=== PATIENT | female | born 1995 | race Caucasian/White ===

== ENCOUNTER 2016-09-07 06:36 | Emergency (ER) | payer OTHER ==
[2016-09-07 06:48] VITALS: BP 130/99; BMI 48.8
[2016-09-07 07:23] LABS: BILIRUBIN,URINE NEGATIVE (NEGATIVE); BLOOD/HEMOGLOBIN,URINE 3+ (NEGATIVE); GLUCOSE, URINE NEGATIVE (NEGATIVE); KETONES,URINE NEGATIVE (NEGATIVE); LEUKOCYTE ESTERASE ,URINE 3+ (NEGATIVE); NITRITES,URINE NEGATIVE (NEGATIVE); PROTEIN,URINE 1+ (NEGATIVE); UROBILINOGEN,URINE NORMAL (NORMAL)
[2016-09-07] MEDS ORDERED: NS 1000 ML 1,000 ML ONE (07:24)
[2016-09-07] MEDS ORDERED: NS 1000 ML 1,000 ML IV ONE (07:25)
[2016-09-07 07:27] LABS: AMORPHOUS SEDIMENT,UR 1+ /HPF (NEGATIVE); APPEARANCE,URINE CLEAR (CLEAR); BACTERIA,URINE TRACE /HPF (NEGATIVE); COLOR,URINE YELLOW (YELLOW); MUCUS,URINE FEW /HPF (NEGATIVE); SQUAMOUS EPITHELIAL CELL,UR MANY /HPF (NEGATIVE)
[2016-09-07] MEDS ORDERED: BRETHINE INJ 1 MG VIAL SC ONE (07:40)
[2016-09-07] MEDS ORDERED: BRETHINE INJ 1 MG VIAL ONE (07:41)
== END 2016-09-07 08:30 | disposition home or self-care (01) ==
LOC: ER 06:36
DX: O60.14X1 Preterm labor third trimester with preterm delivery third trimester, fetus 1 (principal); Z3A.00 Weeks of gestation of pregnancy not specified
CPT/HCPCS: 81001; 96365; 96372; 96374; 99284; A4222; J3105

== ENCOUNTER 2016-09-11 01:30 | Emergency (ER) | payer OTHER ==
[2016-09-11 01:44] VITALS: BP 124/80; BMI 48.8
[2016-09-11 01:50] LABS: BILIRUBIN,URINE NEGATIVE (NEGATIVE); BLOOD/HEMOGLOBIN,URINE 4+ (NEGATIVE); GLUCOSE, URINE NEGATIVE (NEGATIVE); KETONES,URINE NEGATIVE (NEGATIVE); LEUKOCYTE ESTERASE ,URINE 3+ (NEGATIVE); NITRITES,URINE NEGATIVE (NEGATIVE); PROTEIN,URINE 2+ (NEGATIVE); UROBILINOGEN,URINE 2+ (NORMAL)
[2016-09-11 01:56] LABS: APPEARANCE,URINE CLOUDY (CLEAR); BACTERIA,URINE 2+ /HPF (NEGATIVE); COLOR,URINE YELLOW (YELLOW); RBC,URINE 0-3 /HPF (NEGATIVE); SQUAMOUS EPITHELIAL CELL,UR FEW /HPF (NEGATIVE)
[2016-09-11] MEDS ORDERED: NS 1000 ML 1,000 ML ONE (01:59)
[2016-09-11] MEDS ORDERED: NS 1000 ML 1,000 ML IV ONE (02:11)
[2016-09-11] MEDS ORDERED: MACROBID CAP 100 MG EXT REL PO ONE ×2 (03:20→03:22)
== END 2016-09-11 03:29 | disposition home or self-care (01) ==
LOC: ER 01:30
DX: O47.03 False labor before 37 completed weeks of gestation, third trimester (principal)
CPT/HCPCS: 81001; 87086; 96365; 99284; A4222

== ENCOUNTER → 2016-09-18 | Outpatient (CLI) | payer OTHER ==
[2016-09-11 01:44] VITALS: BP 124/80
[2016-09-18 10:01] LABS: BLOOD UREA NITROGEN 8 mg/dL (7-18); CALCIUM 8.4 mg/dL (8.5-10.1); CARBON DIOXIDE 22.1 mmol/L (21-32); CHLORIDE 107 mmol/L (98-107); CREATININE 0.62 mg/dL (0.55-1.02); GLUCOSE 91 mg/dL (65-99); SODIUM 141 mmol/L (136-145); eGFR BLACK RACES > 60 (>60); eGFR NON BLACK RACES > 60 (>60)
[2016-09-18 10:06] LABS: BASOPHILS % (AUTO) 0.4 % (0.2-1.0); EOSINOPHILS # (AUTO) 0.2 x10^3/uL (0.0-0.2); EOSINOPHILS % (AUTO) 2.1 % (0.9-2.9); HEMATOCRIT 33.5 % (36.0-47.0); HEMOGLOBIN 11.2 g/dL (12.0-16.0); LYMPHOCYTES # (AUTO) 2.3 X10^3/uL (1.3-2.9); LYMPHOCYTES % (AUTO) 24.4 % (21.0-51.0); MEAN CORPUSCULAR HEMOGLOBIN 27.8 pg (27.0-34.0); MEAN CORPUSCULAR HGB CONC 33.6 g/dL (33.0-35.0); MEAN CORPUSCULAR VOLUME 82.8 fL (80.0-100.0); MEAN PLATELET VOLUME 8.1 fL (7.4-11.0); MONOCYTES # (AUTO) 0.5 x10^3/uL (0.3-0.8); MONOCYTES % (AUTO) 5.6 % (0.0-13.0); NEUTROPHILS # (AUTO) 6.3 x10^3/uL (2.2-4.8); NEUTROPHILS % (AUTO) 67.5 % (42.0-75.0); PLATELET COUNT 216 X10^3/uL (150.0-450.0); RED BLOOD COUNT 4.04 X10^6/uL (3.5-5.4); RED CELL DISTRIBUTION WIDTH 14.8 % (11.6-16.5); WHITE BLOOD COUNT 9.3 X10^3/uL (3.6-10.0)
[2016-09-18 10:09] LABS: APPEARANCE,URINE HAZY (CLEAR); BACTERIA,URINE TRACE /HPF (NEGATIVE); BILIRUBIN,URINE NEGATIVE (NEGATIVE); BLOOD/HEMOGLOBIN,URINE 1+ (NEGATIVE); COLOR,URINE YELLOW (YELLOW); GLUCOSE, URINE NEGATIVE (NEGATIVE); KETONES,URINE NEGATIVE (NEGATIVE); LEUKOCYTE ESTERASE ,URINE 3+ (NEGATIVE); NITRITES,URINE NEGATIVE (NEGATIVE); PROTEIN,URINE NEGATIVE (NEGATIVE); RBC,URINE 0-2 /HPF (NEGATIVE); SQUAMOUS EPITHELIAL CELL,UR FEW /HPF (NEGATIVE); UROBILINOGEN,URINE NORMAL (NORMAL)
== END ==
LOC: LAB 09:18
PROVIDERS: ATTEND Specialist
DX: Z01.818 Encounter for other preprocedural examination (principal); Z34.83 Encounter for supervision of other normal pregnancy, third trimester
CPT/HCPCS: 36415; 80048; 81001; 85025; 86592; 86850; 86900; 86901

== ENCOUNTER 2016-09-21 22:08 | Emergency (ER) | payer OTHER ==
[2016-09-21 22:20] VITALS: BP 151/74; BMI 49.4
[2016-09-21 22:33] LABS: BILIRUBIN,URINE NEGATIVE (NEGATIVE); BLOOD/HEMOGLOBIN,URINE 1+ (NEGATIVE); GLUCOSE, URINE NEGATIVE (NEGATIVE); KETONES,URINE NEGATIVE (NEGATIVE); LEUKOCYTE ESTERASE ,URINE 3+ (NEGATIVE); NITRITES,URINE NEGATIVE (NEGATIVE); PROTEIN,URINE 1+ (NEGATIVE); UROBILINOGEN,URINE 1+ (NORMAL)
[2016-09-21 22:41] LABS: APPEARANCE,URINE CLOUDY (CLEAR); BACTERIA,URINE 1+ /HPF (NEGATIVE); COLOR,URINE YELLOW (YELLOW); RBC,URINE 0-3 /HPF (NEGATIVE); SQUAMOUS EPITHELIAL CELL,UR FEW /HPF (NEGATIVE)
== END 2016-09-21 22:57 | disposition other institution (70) ==
LOC: ER 22:08
DX: O40.3XX0 Polyhydramnios, third trimester, not applicable or unspecified (principal); Z37.0 Single live birth; O26.893 Other specified pregnancy related conditions, third trimester; Z3A.38 38 weeks gestation of pregnancy; Z23 Encounter for immunization
CPT/HCPCS: 81001; 87086; 99284

== ENCOUNTER 2016-09-21 23:09 | Inpatient (IN) | payer OTHER ==
[~2016-09-21 23:09] MED LIST: D5 1/2 NS 1000 ML 1,000 ML IV ONE; D5 1/2 NS 1000ML W PITOCIN 20 U/L 1,000 ML IV ONE; PITOCIN ONE
--- NOTE | 2016-09-21 23:42 | DR.OB ---
OB Quick Note - Assessment/Plan Assessment/Plan: L&D 09/21/16 at 11:30pm S-No complaint except contractions. O-Afebrile,VSS [id number] with good LTV, +accel, no decel. CTX=q 2-3 min., strong by palpation CVX=8cm/90%/0/VTX AROM with clear fluid. FSE placed. A-IUP at 38 1/7 weeks in active labor P-Anticipate
[2016-09-22] MEDS ORDERED: PITOCIN 10 UNITS in D5 LR 1000 ML 1,000 ML IV PRN (01:04)
[2016-09-22] MEDS ORDERED: PITOCIN IVP ONE (01:04)
[2016-09-22] MEDS ORDERED: MORPHINE SULFATE INJ 2 MG IVP PRN (01:04)
[2016-09-22] MEDS ORDERED: NUBAIN INJ 200 MG VIAL MULTIDOSE IVP PRN (01:04)
[2016-09-22] MEDS ORDERED: PHENERGAN INJ 25 MG IV PRN ×3 (01:04→04:34)
[2016-09-22] MEDS ORDERED: D5 1/2 NS 1000 ML 1,000 ML IV SCH (01:04)
[2016-09-22] MEDS ORDERED: REGLAN INJ 10 MG VIAL IVP PRN ×2 (01:04→04:34)
[2016-09-22] MEDS ORDERED: MOTRIN TAB 800 MG PO PRN ×2 (03:33→04:34)
--- NOTE | 2016-09-22 03:33 | DR.OB ---
OB Quick Note - Assessment/Plan Assessment/Plan: Delivery Note [employer] BUSINESS CONSULTANT 09/22/16 at 3:30am Patient complete and pushing. Head delivered over intact perineum. No nuchal cord. Nose and mouth bulb suctioned. Body delivered over intact perineum. Cord clamped x 2 and cut. handed to attendant. Cord sent for gases. Placenta delivered spontaneously / intact / 3 vessel cord. No vaginal / CVX / perineal tears. Viable female infant, VTX/OA, wt=7'6" and 9/9, stable to NBN. Mother stable to RR. [id number].
[2016-09-22] MEDS ORDERED: D5 1/2 NS 1000 ML 1,000 ML with PITOCIN 20 UNITS IV SCH ×2 (04:00)
[2016-09-22] MEDS ORDERED: MOTRIN TAB 800 MG PO ONE (04:27)
[2016-09-22] MEDS ORDERED: MILK OF MAGNESIA PO PRN (04:34)
[2016-09-22] MEDS ORDERED: ADACEL TDaP IM ONE (04:34)
[2016-09-22] MEDS ORDERED: DERMOPLAST SPRAY TOP PRN (04:34)
[2016-09-22] MEDS ORDERED: AMBIEN PO PRN (04:34)
[2016-09-22 06:24] LABS: HEMATOCRIT 26.4 % (36.0-47.0); HEMOGLOBIN 8.7 g/dL (12.0-16.0)
[2016-09-22] MEDS: ZANTAC PO SCH ×2 (08:44→21:32)
[2016-09-22] MEDS: PRENATAL PLUS PO SCH (08:44)
[2016-09-22] MEDS: D5 1/2 NS 1000 ML 1,000 ML with PITOCIN 20 UNITS IV SCH ×4 (15:41→22:38)
[2016-09-23] MEDS: D5 1/2 NS 1000 ML 1,000 ML with PITOCIN 20 UNITS IV SCH ×2 (05:27)
[2016-09-23] MEDS: PRENATAL PLUS PO SCH (08:16)
[2016-09-23] MEDS: ZANTAC PO SCH (08:16)
[2016-09-23 12:40] VITALS: BP 117/79
== END 2016-09-23 13:25 | disposition home or self-care (01) | DRG 775 ==
LOC: LD 23:09 → MED/SURG 09-22 03:33
PROVIDERS: ADMIT Specialist; ATTEND Specialist
PROC: 10E0XZZ Delivery of Products of Conception, External Approach (ICD-10-PCS; principal; 2016-09-21)
PROC: 3E0234Z Introduction of Serum, Toxoid and Vaccine into Muscle, Percutaneous Approach (ICD-10-PCS; 2016-09-21)
DX: O40.3XX0 Polyhydramnios, third trimester, not applicable or unspecified (principal); Z37.0 Single live birth; O26.893 Other specified pregnancy related conditions, third trimester; Z3A.38 38 weeks gestation of pregnancy; Z23 Encounter for immunization
CPT/HCPCS: 36415; 85014; 85018; A4216; A4222; S0197; J2550; J2590; J7042

== ENCOUNTER 2016-10-05 11:15 | Emergency (ER) | payer OTHER ==
[2016-10-05 11:38] VITALS: BMI 42.3
[2016-10-05] MEDS ORDERED: NS 1000 ML 1,000 ML IV ONE ×2 (11:39→12:46)
[2016-10-05] MEDS ORDERED: NS 1000 ML 1,000 ML ONE ×2 (11:43→12:47)
--- NOTE | 2016-10-05 12:00 | DR.GENAD ---
HPI - PCP Primary Care Physician: RUSS - Complaint/Symptoms Chief Complaint:: PT C/O SEVERE VAGINAL BLEEDING. PT IS POST PARDUM X2 WEEKS. PT STATES SHE HAS HAD X2 EPISODES OF THIS SAME THING. PT WAS SEEN IN ER IN [facility] LAST NIGHT AND WAS SENT HOME. WHEN PT WOKE UP THIS AM PT WAS COVERED IN BLOOD WITH LARGE CLOTS. EMS STATES PT WAS SOB. PT PRESENT TO ER DEPT WITH NO SOB AT THIS TIME. - Source History Provided: Patient - Mode of Arrival Mode of Arrival: EMS - Timing Onset of Chief Complaint: 10/05/16 PMH - PMH Past Medical History: No Past Medical History: Kidney Stones Past Surgical History: Yes Surgical History: Tonsillectomy, Lithotripsy - Family History History of Family Medical Conditions: No Family Medical History: Diabetes Mellitus, Cancer - Social History Does any household member use tobacco: No Alcohol Use: None Do you use any recreational Drugs:: No Lives With: Family Lives Where: Home - infectious screening In the last 2 months have you had wt loss of >10#?: NO Have you had fever, night sweats or hemotysis?: No Have you traveled outside the country in the last 6 months?: No Isolation: Standard ROS - Review of Systems Constitutional: No Symptoms Reported Eyes: No Symptoms Reported ENTM: No Symptoms Reported Respiratoy: No Symptoms Reported Cardiovascular: No Symptoms Reported Gastrointestinal/Abdominal: No Symptoms Reported Genitourinary: No Symptoms Reported Neurological: No Symptoms Reported Musculoskeletal: No Symptoms Reported Integumentary: No Symptoms Reported Hematologic/Lymphatic: No Symptoms Reported Endocrine: No Symptoms Reported Psychiatric: No Symptoms Reported All Other Systems: Reviewed and Negative PE - Vital Signs Vitals: Temperature 99.1 F Pulse Rate [Right Radial] 102 Pulse Rate 103 Respiratory Rate 18 Blood Pressure [Left Arm] 102/55 Blood Pressure 107/50 O2 Sat by Pulse Oximetry 98 - General Limitations: No Limitations General Appearance: Alert, In No Apparent Distress - Head Head Exam: Normal Inspection, Atraumatic - Eyes Eye exam: Normal Appearance, PERRL, EOMI - ENT ENT Exam: Normal Exam, Normal Oropharynx, Mucous Membranes Moist. negative: Mucous Membranes Dry External Ear Exam: Normal External Inspection TM/Canal Exam: Bilateral Normal Nose Exam: Normal Nose Exam Mouth Exam: Normal Inspection Throat Exam: Normal Inspection - Neck Neck Exam: Normal Inspection - Chest Chest Inspection: Normal Inspection - Respiratory Respiratory Exam: Normal Lung Sounds Bilat Respiratory Exam: Bilateral Clear to Auscultation - Cardiovascular Cardiovascular Exam: Regular Rate, Normal Rhythm - Abdominal Exam Abdominal Exam: Normal Inspection Abdominal Tenderness: negative: Epigastrium, Suprapubic - Extremities Extremities Exam: Normal Inspection, Full ROM, Normal Capillary Refill. negative: Joint Swelling - Back Back Exam: Normal Inspection - Neurologic Neurological Exam: Alert, Oriented X3, CN II-XII Intact - Psychiatric Psychiatric Exam: Normal Affect, Normal Mood ROR - Labs Reviewed Laboratory Results Reviewed?: Yes (low pot) Result Diagrams: 10/05/16 11:50 10/05/16 11:50 Laboratory: WBC 9.0 X10^3/uL (3.6-10.0) 10/05/16 11:50 RBC 3.31 X10^6/uL (3.5-5.4) L 10/05/16 11:50 Hgb 9.0 g/dL (12.0-16.0) L 10/05/16 11:50 Hct 27.1 % (36.0-47.0) L 10/05/16 11:50 MCV 81.9 fL (80.0-100.0) 10/05/16 11:50 MCH 27.1 pg (27.0-34.0) 10/05/16 11:50 MCHC 33.1 g/dL (33.0-35.0) 10/05/16 11:50 RDW 15.4 % (11.6-16.5) 10/05/16 11:50 Plt Count 201 X10^3/uL (150.0-450.0) 10/05/16 11:50 MPV 7.4 fL (7.4-11.0) 10/05/16 11:50 Neut % 83.1 % (42.0-75.0) H 10/05/16 11:50 Lymph % 10.1 % (21.0-51.0) L 10/05/16 11:50 [place] % 5.5 % (0.0-13.0) 10/05/16 11:50 Eos % 0.8 % (0.9-2.9) L 10/05/16 11:50 Baso % 0.5 % (0.2-1.0) 10/05/16 11:50 Neut # 7.5 x10^3/uL (2.2-4.8) H 10/05/16 11:50 Lymph # 0.9 X10^3/uL (1.3-2.9) L 10/05/16 11:50 [place] # 0.5 x10^3/uL (0.3-0.8) 10/05/16 11:50 Eos # 0.1 x10^3/uL (0.0-0.2) 10/05/16 11:50 Baso # 0.0 X10^3/uL (0.0-0.1) 10/05/16 11:50 Absolute Nucleated RBC 0.0 /100WBC 10/05/16 11:50 PTT 35.4 SECONDS (22.9-36.5) 10/05/16 11:50 PTT Comment - 10/05/16 11:50 Sodium 139 mmol/L (136-145) 10/05/16 11:50 Corrected Sodium 141 mmol/L (136-145) 10/05/16 11:50 Potassium 3.0 mmol/L (3.5-5.1) L* 10/05/16 11:50 Chloride 103 mmol/L (98-107) 10/05/16 11:50 Carbon Dioxide 22.7 mmol/L (21-32) 10/05/16 11:50 BUN 10 mg/dL (7-18) 10/05/16 11:50 Creatinine 1.02 mg/dL (0.55-1.02) 10/05/16 11:50 Est GFR (MDRD) Af Amer > 60 (>60) 10/05/16 11:50 Est GFR (MDRD) Non-Af > 60 (>60) 10/05/16 11:50 Glucose 176 mg/dL (65-99) H 10/05/16 11:50 Calcium 8.0 mg/dL (8.5-10.1) L 10/05/16 11:50 Corrected Calcium 9.3 mg/dL (8.5-10.1) 10/05/16 11:50 Total Bilirubin 0.30 mg/dL (0.2-1.0) 10/05/16 11:50 AST 25 Units/L (15-37) 10/05/16 11:50 ALT 22 Units/L (12-78) 10/05/16 11:50 Alkaline Phosphatase 82 Units/L (46-116) 10/05/16 11:50 Total Protein 6.0 g/dL (6.4-8.2) L 10/05/16 11:50 Albumin 2.4 g/dL (3.4-5.0) L 10/05/16 11:50 Globulin 3.6 g/dL (2.5-4.5) 10/05/16 11:50 Albumin/Globulin Ratio 0.7 Ratio (1.1-2.1) L 10/05/16 11:50 - Diagnosis Discharge Problem: Hypokalemia bleeding Qualifiers: hemorrhage type: unspecified Qualified Code(s): O72.1 - Other immediate hemorrhage - Discharge Plan Condition: Stable - Follow ups/Referrals Follow ups/Referrals: BRIDGETTE SOLANO [Primary Care Provider] - 3 days - Instructions
[2016-10-05 12:02] LABS: BASOPHILS % (AUTO) 0.5 % (0.2-1.0); EOSINOPHILS # (AUTO) 0.1 x10^3/uL (0.0-0.2); EOSINOPHILS % (AUTO) 0.8 % (0.9-2.9); HEMATOCRIT 27.1 % (36.0-47.0); LYMPHOCYTES # (AUTO) 0.9 X10^3/uL (1.3-2.9); LYMPHOCYTES % (AUTO) 10.1 % (21.0-51.0); MEAN CORPUSCULAR HEMOGLOBIN 27.1 pg (27.0-34.0); MEAN CORPUSCULAR HGB CONC 33.1 g/dL (33.0-35.0); MEAN CORPUSCULAR VOLUME 81.9 fL (80.0-100.0); MEAN PLATELET VOLUME 7.4 fL (7.4-11.0); MONOCYTES # (AUTO) 0.5 x10^3/uL (0.3-0.8); MONOCYTES % (AUTO) 5.5 % (0.0-13.0); NEUTROPHILS # (AUTO) 7.5 x10^3/uL (2.2-4.8); NEUTROPHILS % (AUTO) 83.1 % (42.0-75.0); PLATELET COUNT 201 X10^3/uL (150.0-450.0); RED BLOOD COUNT 3.31 X10^6/uL (3.5-5.4); RED CELL DISTRIBUTION WIDTH 15.4 % (11.6-16.5)
[2016-10-05 12:12] LABS: BLOOD UREA NITROGEN 10 mg/dL (7-18); CARBON DIOXIDE 22.7 mmol/L (21-32); CHLORIDE 103 mmol/L (98-107); COR NA(FOR HYPERGLY) 141 mmol/L (136-145); CREATININE 1.02 mg/dL (0.55-1.02); GLUCOSE 176 mg/dL (65-99); SODIUM 139 mmol/L (136-145); eGFR BLACK RACES > 60 (>60); eGFR NON BLACK RACES > 60 (>60)
[2016-10-05 12:19] LABS: ALANINE AMINOTRANSFERASE 22 Units/L (12-78); ALBUMIN 2.4 g/dL (3.4-5.0); ALKALINE PHOSPHATASE 82 Units/L (46-116); ASPARTATE AMINO TRANSFERASE 25 Units/L (15-37); COR CA(FOR HYPOALB) 9.3 mg/dL (8.5-10.1)
[2016-10-05] MEDS ORDERED: K-LYTE EFFERVESCENT PO ONE (12:20)
[2016-10-05 12:46] VITALS: BP 102/55
[2016-10-05] MEDS ORDERED: K-DUR TAB 20 MEQ PO ONE (13:31)
[2016-10-05] MEDS ORDERED: MICRO K EXTEN CAP 10 MEQ PO ONE (13:52)
== END 2016-10-05 14:36 | disposition home or self-care (01) ==
LOC: ER 11:29
DX: O72.1 Other immediate postpartum hemorrhage (principal); E87.6 Hypokalemia
CPT/HCPCS: 36415; 80053; 85025; 85730; 96365; 96367; 99283